=== PATIENT | female | born 1980 | race Two or more races ===

== ENCOUNTER 2018-12-30 15:00 | Emergency (ER) | payer MEDICAID, OTHER ==
[~2018-12-30] VITALS: Ht 165.1 cm; Wt 54.4 kg
[2018-12-30 15:21] VITALS: BP 92/46
[2018-12-30] MEDS ORDERED: ACETAMINOPHEN 325 MG TAB PO ONE (16:25)
== END 2018-12-30 21:51 | disposition left against medical advice (07) ==
LOC: ER 15:03
DX: R10.9 Unspecified abdominal pain (principal); Z53.21 Procedure and treatment not carried out due to patient leaving prior to being seen by health care provider
CPT/HCPCS: 99281; J7030